=== PATIENT | female | born 1935 | race Caucasian/White ===

== ENCOUNTER 2022-10-18 05:30 | Inpatient (IN) | payer MEDICARE ==
[~2022-10-18] VITALS: Ht 157.5 cm; Wt 48.9 kg
[2022-10-18 07:55] LABS: BASOPHILS % (AUTO) 0.4 % (0.0-5.0); EOSINOPHILS % (AUTO) 2.1 % (0.0-8.0); HEMATOCRIT 41.8 % (36-48); LYMPHOCYTES % (AUTO) 19.6 % (21.0-51.0); MEAN CORPUSCULAR HEMOGLOBIN 30.1 pg (27.0-33.0); MEAN CORPUSCULAR HGB CONC 31.6 g/dL (32.0-36.0); MEAN CORPUSCULAR VOLUME 95.2 fL (79-99); MONOCYTES % (AUTO) 7.3 % (3.0-13.0); NEUTROPHILS % (AUTO) 70.3 % (40.0-77.0); PLATELET COUNT (AUTO) 163 K/uL (130-400); RED BLOOD CELL COUNT(AUTO) 4.39 MIL/uL (4.00-5.50); RED CELL DISTRIBUTION WIDTH 13.2 % (11.0-15.5); WHITE BLOOD COUNT (AUTO) 6.8 K/uL (4.8-10.8)
[2022-10-18 08:05] LABS: APPEARANCE,URINE CLEAR (CLEAR); BILIRUBIN,URINE NEGATIVE (NEGATIVE); COLOR,URINE LIGHT-YELLOW (YELLOW); GLUCOSE, URINE (UA) NEGATIVE (NEGATIVE); INR 0.96 (0.85-1.15); KETONES,URINE NEGATIVE (NEGATIVE); LEUKOCYTE ESTERASE ,URINE NEGATIVE Leu/uL (NEGATIVE); NITRATE,URINE NEGATIVE (NEGATIVE); OCCULT BLOOD,URINE NEGATIVE (NEGATIVE); PROTEIN,URINE NEGATIVE (NEGATIVE); PROTHROMBIN TIME 11.2 SEC (9.6-11.6); UROBILINOGEN,URINE 0.2 mg/dL (0.2-1.0)
[2022-10-18 08:07] LABS: PARTIAL THROMBOPLASTIN TIME 26.7 SEC (26.3-35.5)
[2022-10-18 08:10] LABS: ALBUMIN 3.3 g/dL (3.5-5.0); CREATININE 0.8 mg/dL (0.5-1.5); POTASSIUM 3.5 mmol/L (3.5-5.1); TOTAL PROTEIN, SERUM 7.5 g/dL (6.0-8.3)
[2022-10-18 08:41] LABS: B-TYPE NATRIURETIC PEPTIDE 45 pg/mL (0-100)
[2022-10-18] MEDS ORDERED: ONDANSETRON 4MG INJ IVP PRN (11:00)
[2022-10-18] MEDS ORDERED: LORAZEPAM 2 MG/ML 1 ML VIAL ONE (11:00)
[2022-10-18] MEDS ORDERED: ACETAMINOPHEN 500 MG TABLET PO PRN (11:00)
[2022-10-18] MEDS: LACTATED RINGERS 1000ML 1,000 ML IV SCH (11:26)
[2022-10-18] MEDS: PANTOPRAZOLE 40 MG/VIAL IVP SCH (11:26)
[2022-10-18] MEDS: CEFAZOLIN SODIUM 1 GM VIAL IVPB SCH (11:38)
[2022-10-18] MEDS ORDERED: HYDRALAZINE 20MG/ML VIAL IV PRN (12:00)
[2022-10-18] MEDS ORDERED: DIPH,PERTUSS(ACELL),TET VAC/PF 0.5 ML VIAL IM ONE (12:30)
[2022-10-18] MEDS ORDERED: LORAZEPAM 2 MG/ML 1 ML VIAL IVP ONE (16:30)
[2022-10-18] MEDS: LORAZEPAM 2 MG/ML 1 ML VIAL IVP PRN (19:42)
[2022-10-19] MEDS: CEFAZOLIN SODIUM 1 GM VIAL IVPB SCH ×3 (00:14→23:20)
[2022-10-19] MEDS: LACTATED RINGERS 1000ML 1,000 ML IV SCH (07:27)
[2022-10-19 07:50] LABS: BASOPHILS % (AUTO) 0.4 % (0.0-5.0); EOSINOPHILS % (AUTO) 2.2 % (0.0-8.0); HEMATOCRIT 38.7 % (36-48); MEAN CORPUSCULAR HEMOGLOBIN 30.2 pg (27.0-33.0); MEAN CORPUSCULAR HGB CONC 31.8 g/dL (32.0-36.0); MEAN CORPUSCULAR VOLUME 95.1 fL (79-99); MONOCYTES % (AUTO) 8.3 % (3.0-13.0); NEUTROPHILS % (AUTO) 69.7 % (40.0-77.0); PLATELET COUNT (AUTO) 169 K/uL (130-400); RED BLOOD CELL COUNT(AUTO) 4.07 MIL/uL (4.00-5.50); RED CELL DISTRIBUTION WIDTH 12.9 % (11.0-15.5); WHITE BLOOD COUNT (AUTO) 6.8 K/uL (4.8-10.8)
[2022-10-19 09:00] LABS: ALBUMIN 3.4 g/dL (3.5-5.0); CREATININE 0.8 mg/dL (0.5-1.5); MAGNESIUM 1.9 mg/dL (1.80-2.40); POTASSIUM 4.4 mmol/L (3.5-5.1); TOTAL PROTEIN, SERUM 7.6 g/dL (6.0-8.3)
[2022-10-19] MEDS: PANTOPRAZOLE 40 MG/VIAL IVP SCH (11:25)
[2022-10-19] MEDS: LORAZEPAM 2 MG/ML 1 ML VIAL IVP PRN (11:25)
[2022-10-19 16:00] VITALS: BP 196/87; PULSE 99; RESP 19; O2SAT 98
[2022-10-19 20:00] VITALS: BP 151/77; PULSE 104; RESP 19; O2SAT 98
[2022-10-19 23:45] VITALS: BP 150/77; PULSE 104; RESP 19
[2022-10-20] MEDS: LACTATED RINGERS 1000ML 1,000 ML IV SCH (03:00)
[2022-10-20 06:55] VITALS: BP 162/76; PULSE 107; RESP 20
[2022-10-20 08:00] VITALS: BP 158/67; PULSE 90; RESP 17; O2SAT 99
[2022-10-20 11:42] VITALS: BP 156/76; PULSE 94; RESP 16
[2022-10-20] MEDS: CEFAZOLIN SODIUM 1 GM VIAL IVPB SCH (11:56)
[2022-10-20] MEDS: PANTOPRAZOLE 40 MG/VIAL IVP SCH (11:56)
[2022-10-20] MEDS ORDERED: AMLODIPINE 5 MG TAB PO SCH (13:00)
== END 2022-10-20 18:10 | disposition home or self-care (01) | DRG 605 ==
LOC: EDH 05:30 → EDHIP 10:55 → 3AH 10-19 15:55
PROVIDERS: ADMIT Internal Medicine; ATTEND Internal Medicine
DX: S01.81XA Laceration without foreign body of other part of head, initial encounter (principal); F03.918 Unspecified dementia, unspecified severity, with other behavioral disturbance; W06.XXXA Fall from bed, initial encounter; I10 Essential (primary) hypertension; Z66 Do not resuscitate; Z91.199 Patient's noncompliance with other medical treatment and regimen due to unspecified reason; Z91.81 History of falling; Y93.89 Activity, other specified; Y92.89 Other specified places as the place of occurrence of the external cause; Y99.8 Other external cause status
CPT/HCPCS: 36415; 70450; 70486; 71045; 72125; 80053; 81003; 82550; 83735; 83880; 84484; 85025; 85610; 85730; 90715; 92610; 93005; 97039; C9113; G0378; J0360; J0690; J2060; J7120